=== PATIENT | female | born 1975 | race Caucasian/White ===

== ENCOUNTER 2016-08-04 16:18 | Emergency (ER) | payer OTHER ==
[2016-08-04 16:38] VITALS: BP 111/63
[2016-08-04] MEDS ORDERED: DILAUDID IM ONE (16:38)
[2016-08-04] MEDS ORDERED: PHENERGAN IM ONE (16:39)
== END 2016-08-04 17:10 | disposition home or self-care (01) ==
LOC: ED 16:18
DX: G43.919 Migraine, unspecified, intractable, without status migrainosus (principal); R51 Headache
CPT/HCPCS: 96372; J1170; J2550